=== PATIENT | male | born 1950 | race Caucasian/White ===

== ENCOUNTER → 2017-07-15 | Outpatient (CLI) | payer OTHER | LOC: RAD 12:16 | DX: M25.512 Pain in left shoulder (principal) ==

== ENCOUNTER → 2017-12-20 | Outpatient (CLI) | payer OTHER | END | disposition home or self-care (01) | LOC: LAB 11:33 | DX: R00.0 Tachycardia, unspecified (principal) ==

== ENCOUNTER 2019-05-02 11:02 | Emergency (ER) | payer OTHER ==
[~2019-05-02] VITALS: Ht 180.3 cm; Wt 99.8 kg
[2019-05-02] MEDS ORDERED: ULTRAM50 MG PO (12:34)
== END 2019-05-02 13:17 | disposition home or self-care (01) ==
LOC: ED 11:02
DX: S52.502A Unspecified fracture of the lower end of left radius, initial encounter for closed fracture (principal); W01.0XXA Fall on same level from slipping, tripping and stumbling without subsequent striking against object, initial encounter; Y93.02 Activity, running; Y92.89 Other specified places as the place of occurrence of the external cause; Y99.8 Other external cause status

== ENCOUNTER → 2019-05-07 | Outpatient (CLI) | payer OTHER ==
[~2019-05-07] MED LIST: ULTRAM50 MG PO
== END | disposition home or self-care (01) ==
LOC: ORTHO 00:55
DX: S52.592D Other fractures of lower end of left radius, subsequent encounter for closed fracture with routine healing (principal); M25.432 Effusion, left wrist; X58.XXXD Exposure to other specified factors, subsequent encounter

== ENCOUNTER → 2019-06-01 | Outpatient (CLI) | payer OTHER | END | disposition home or self-care (01) | LOC: ORTHO 00:12 | DX: S52.509D Unspecified fracture of the lower end of unspecified radius, subsequent encounter for closed fracture with routine healing (principal); X58.XXXD Exposure to other specified factors, subsequent encounter ==

== ENCOUNTER → 2019-06-18 | Outpatient (CLI) | payer OTHER | END | disposition home or self-care (01) | LOC: ORTHO 01:00 | DX: S52.509D Unspecified fracture of the lower end of unspecified radius, subsequent encounter for closed fracture with routine healing (principal); M25.511 Pain in right shoulder; X58.XXXD Exposure to other specified factors, subsequent encounter ==

== ENCOUNTER 2020-03-06 11:10 | Inpatient (IN) | payer OTHER ==
[2020-03-06] VITALS (17 sets, daily range): BP systolic 90–139; BP diastolic 46–76
[~2020-03-06] VITALS: Ht 180.3 cm; Wt 93.2 kg
[2020-03-06 11:57] LABS: MEAN CELL VOLUME 67.4 fl (80.0-94.0); MEAN CORPUSCULAR HGB 16.8 pg (27.0-31.0); MEAN PLATELET VOLUME 10.1 fl (9.6-12.3); NUCLEATED RED BLOOD CELL 0.1 10*3/uL (0.0-0.0); NUCLEATED RED BLOOD CELL 0.9 % (0.0-0.0); PLATELET COUNT AUTOMATED 579 10*3/uL (130-400); RED BLOOD COUNT 2.73 10*6/uL (4.50-5.90); RED CELL DISTRI WIDTH 19.2 % (0-14.5)
--- NOTE | 2020-03-06 12:00 | NUR ---
PATIENT DENIES WOUNDS A&OX4.
[2020-03-06 12:04] LABS: HEMATOCRIT 18.4 % (42.0-52.0)
[2020-03-06 12:06] LABS: ACT PARTIAL THROMBO TIME 25.3 SECONDS (20.0-32.1)
[2020-03-06 12:10] LABS: IRON 8 ug/dL (65-175); TOTAL IRON BINDING CAPACITY 400 ug/dl (250-450)
[2020-03-06 12:14] LABS: ALKALINE PHOSPHATASE 91 U/L (45-117); BUN 13 mg/dl (7-24); CHLORIDE 105 mmol/L (98-107); CREATININE 0.97 mg/dL (0.70-1.30); POTASSIUM 3.8 mmol/L (3.5-5.1); SGOT/AST 9 IU/L (3-35); SGPT/ALT 24 U/L (12-78); SODIUM 133 mmol/L (136-145); TOTAL PROTEIN 6.5 gm/dL (6.4-8.2)
[2020-03-06 12:15] LABS: LIPASE 104 U/L (73-393)
[2020-03-06 12:17] LABS: TROPONIN I < 0.015 ng/ml (<0.045)
[2020-03-06 12:30] LABS: RETICULOCYTE % 5.53 % (0.50-2.50)
[2020-03-06 12:35] LABS: MICROCYTOSIS MARKED; OVALOCYTES MANY; TOTAL CELLS COUNTED 100 #CELLS
[2020-03-06 12:36] LABS: PLATELET SUFFICIENCY HIGH (NORMAL); SCHISTOCYTES FEW
[2020-03-06 12:52] LABS: FERRITIN 6.1 ng/mL (22.0-322.0)
--- NOTE | 2020-03-06 13:04 | NUR ---
THE PATIENT WAS GIVEN A URINAL
--- NOTE | 2020-03-06 13:13 | NUR ---
THE PATIENT ASKED IF HE COULD HAVE "SOMETHING TO EAT." I CHECKED WITH WITH ER DOC. AND HE SAID HE COULD HAVE A LUNCH TRAY.
--- NOTE | 2020-03-06 13:49 | NUR ---
THE PATIENT WAS GIVEN HIS LUNCH TRAY
[2020-03-06] MEDS ORDERED: RESTASIS1 EACH OP (14:28)
[2020-03-06] MEDS ORDERED: ZESTORETIC 10-1 EACH PO (14:28)
[2020-03-06] MEDS ORDERED: DICLOFENAC SOD75 MG PO (14:29)
--- NOTE | 2020-03-06 14:30 | NUR ---
PATIENT TAKEN TO ICCU AT THIS TIME BY THIS NURSE. NO CHANGE IN STATUS. A&OX4. BEDSIDE REPORT GIVEN TO BRIAN CHANEY.
--- NOTE | 2020-03-06 14:35 | NUR ---
RECEVIED FROM ER VIA CART WITH C/O GI BLEED.. PATIENT STATES HE HAS BEEN HAVING A LOT OF ACIDIC DRINKS LATELY
--- NOTE | 2020-03-06 18:37 | NUR ---
FIRST RBC COMPLETED
--- NOTE | 2020-03-06 19:10 | NUR ---
CHART CHECK COMPLETE.
--- NOTE | 2020-03-06 20:53 | NUR ---
PREOP QUESTIONNAIRE/CONSENT SIGNED BY PT.
[2020-03-06 21:41] LABS: MEAN CORPUSCULAR HGB 18.9 pg (27.0-31.0); MEAN CORPUSCULAR HGB CONC 26.6 g/dl (33.0-37.0); MEAN PLATELET VOLUME 10.9 fl (9.6-12.3); NUCLEATED RED BLOOD CELL 0.1 10*3/uL (0.0-0.0); PLATELET COUNT AUTOMATED 517 10*3/uL (130-400); RED BLOOD COUNT 2.64 10*6/uL (4.50-5.90); RED CELL DISTRI WIDTH 21.5 % (0-14.5); WHITE BLOOD COUNT 9.2 10*3/uL (4.8-10.8)
--- NOTE | 2020-03-06 21:56 | NUR ---
DR Libby CALVERT NOTIFIED OF HH 5&18.8.
[2020-03-06 21:57] LABS: HEMATOCRIT 18.8 % (42.0-52.0); MEAN CELL VOLUME 71.2 fl (80.0-94.0)
[2020-03-06 22:08] LABS: BASOPHILS 2 % (0-1); TOTAL CELLS COUNTED 100 #CELLS
[2020-03-06 22:09] LABS: ACANTHOCYTES FEW; MICROCYTOSIS MODERATE; OVALOCYTES MANY; PLATELET SUFFICIENCY HIGH (NORMAL)
[2020-03-07] VITALS (22 sets, daily range): BP systolic 73–117; BP diastolic 37–71
--- NOTE | 2020-03-07 02:24 | NUR ---
PT SLEEPING. THIRD UNIT OF PRBC'S INFUSING WITHOUT DIFFICULTY. HR 70'S.
[2020-03-07 06:28] LABS: HEMATOCRIT 23.8 % (42.0-52.0); MEAN CELL VOLUME 72.8 fl (80.0-94.0); MEAN CORPUSCULAR HGB 20.8 pg (27.0-31.0); MEAN CORPUSCULAR HGB CONC 28.6 g/dl (33.0-37.0); MEAN PLATELET VOLUME 10.3 fl (9.6-12.3); NUCLEATED RED BLOOD CELL 0.1 10*3/uL (0.0-0.0); NUCLEATED RED BLOOD CELL 0.9 % (0.0-0.0); PLATELET COUNT AUTOMATED 441 10*3/uL (130-400); RED BLOOD COUNT 3.27 10*6/uL (4.50-5.90); WHITE BLOOD COUNT 7.4 10*3/uL (4.8-10.8)
--- NOTE | 2020-03-07 06:34 | NUR ---
DR BOYD NOTIFIED OF HGB 6.8.
[2020-03-07 07:01] LABS: ALBUMIN 2.7 gm/dl (3.1-4.5); BUN 9 mg/dl (7-24); CHLORIDE 108 mmol/L (98-107); POTASSIUM 4.3 mmol/L (3.5-5.1); SODIUM 136 mmol/L (136-145)
[2020-03-07 07:05] LABS: ALKALINE PHOSPHATASE 81 U/L (45-117); CREATININE 0.76 mg/dL (0.70-1.30); IRON 15 ug/dL (65-175); SGOT/AST 13 IU/L (3-35); SGPT/ALT 18 U/L (12-78); TOTAL IRON BINDING CAPACITY 354 ug/dl (250-450); TOTAL PROTEIN 5.9 gm/dL (6.4-8.2)
[2020-03-07 07:12] LABS: BASOPHILS 3 % (0-1); OVALOCYTES MANY; PLATELET SUFFICIENCY HIGH (NORMAL); POLYCHROMASIA SLIGHT; TOTAL CELLS COUNTED 100 #CELLS
[2020-03-07 07:13] LABS: MICROCYTOSIS SLIGHT; SCHISTOCYTES FEW
--- NOTE | 2020-03-07 08:15 | NUR ---
AAOX3, UP TO BR FOR AM CARE, PT STEADY, HEART RATE 112 WITH WALKING, NO DIZZINESS NOTED. OV SITE TO COLLEEN SECURE, PT HAS NO VOICED C/O BUT IS HUNGRY
--- NOTE | 2020-03-07 08:30 | NUR ---
CM in to see patient. Nurse currently in room. Will follow up at a later time.
--- NOTE | 2020-03-07 09:00 | NUR ---
CM in to see patient. He is sitting up in his bedside chair talking on the phone. Will follow up at a later time.
--- NOTE | 2020-03-07 09:30 | NUR ---
TO OR VIA BED
--- NOTE | 2020-03-07 10:00 | NUR ---
lab unable to match blood, specmen to be sent to [facility] for cross matching
--- NOTE | 2020-03-07 11:20 | NUR ---
return from or, egd negative, pt to nucleur for bleeding scan
--- NOTE | 2020-03-07 12:30 | NUR ---
CM in to see patient. He is currently not in his room. Will follow up at a later time.
--- NOTE | 2020-03-07 13:06 | NUR ---
PT REMAINS IN RADIOLOGY
--- NOTE | 2020-03-07 13:54 | NUR ---
Correctional Program Officer in to talk to patient. Patient states lives at home with his land living downstairs. There are 10 steps in the home. Physician: Dr. Jacobs Pharmacy: [facility] Home health services: none Patient's level of ADLs: INDEPENDENT Patient has working utilities: yes DME: none Follow-up physician's appointment after d/c: he prefers to make his own follow up appt after discharge Does patient want to access PORTAL?: no Discharge plan discussed with patient. He is sitting up in his bedside chair eating dinner. He lives at home with his land [place] living downstairs. He is independent in his ADLs and ambulation. 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 He states he goes to the gym 3 days a week. He officiated a volleyball game 2 nights ago in [place]. Discussed home health care services and he declines. CM will continue to follow for any discharge planning needs. When medically stable he will be discharged to home. He states his samantha, Elvin Viveros, will provide transportation on discharge. MALLORIE VELÁSQUEZ
[2020-03-07 16:34] LABS: THYROID STIM HORMONE (HS) 2.07 uIU/ml (0.358-4.75)
--- NOTE | 2020-03-07 18:09 | NUR ---
PT UNABLE TO TOLERATE IV IRON, IV SITE IS SWOLLEDN, IV REMOVED AND NEW IV RESTARTED
--- NOTE | 2020-03-07 19:16 | NUR ---
CHART CHECK COMPLETE.
--- NOTE | 2020-03-07 20:25 | NUR ---
UNIT #4 TRANSFUSING ORDERED.
--- NOTE | 2020-03-07 22:55 | NUR ---
PT TRANSFUSION COMPLETED. PT WATCHING TV.
--- NOTE | 2020-03-08 01:30 | NUR ---
PT LAYING ON HIS BED...SLEEPING WITH EVEN, UNLABORED RESPIRATIONS.
[2020-03-08 04:00] VITALS: BP 110/59
[2020-03-08 06:32] LABS: BASO # 0.1 10*3/uL (0.0-0.1); BASO % 0.5 % (0.0-1.0); EOS # 0.2 10*3/uL (0.0-0.4); EOS % 2.3 % (1.0-4.0); HEMATOCRIT 26.8 % (42.0-52.0); LYMPH # 1.4 10*3/uL (1.3-4.4); LYMPH % 14.8 % (27.0-41.0); MEAN CELL VOLUME 75.5 fl (80.0-94.0); MEAN CORPUSCULAR HGB CONC 29.1 g/dl (33.0-37.0); MEAN PLATELET VOLUME 10.2 fl (9.6-12.3); MONO # 0.7 10*3/uL (0.1-1.0); MONO % 7.9 % (3.0-9.0); NEUT # 6.9 10*3/uL (2.3-7.9); NEUT % 74.2 % (47.0-73.0); NUCLEATED RED BLOOD CELL 0.1 10*3/uL (0.0-0.0); NUCLEATED RED BLOOD CELL 0.6 % (0.0-0.0); PLATELET COUNT AUTOMATED 408 10*3/uL (130-400); RED BLOOD COUNT 3.55 10*6/uL (4.50-5.90); RED CELL DISTRI WIDTH 23.3 % (0-14.5); WHITE BLOOD COUNT 9.3 10*3/uL (4.8-10.8)
--- NOTE | 2020-03-08 07:59 | NUR ---
Shift chart check completed.24 HR chart check completed.
[2020-03-08 08:00] VITALS: BP 98/50
--- NOTE | 2020-03-08 09:33 | NUR ---
ON ASSESSMENT PATIENT IS ALERT, ORIENTED, WATCHING TV. NO VOICED COMPLAINTS OF PAIN OR SHORTNESS OF BREATH. EXPLANATIONS ABOUT COLONOSCOPY PREP AND PROCEDURE. PT IS CONCERNED ABOUT PREPPING AND A BSC VS AN ACTUAL BATHROOM.
--- NOTE | 2020-03-08 10:41 | NUR ---
DR HAYES HAS VISITED AND REVIEWED PLANS FOR COLONOSCOPY TUESDAY. IV RT HAND PAINFUL PRIOR TO STARTING FERRLICET INFUSION; SITE D/C. NEW IV #22 RA ON FIRST ATTEMPT.
[2020-03-08 12:00] VITALS: BP 104/58
--- NOTE | 2020-03-08 15:24 | NUR ---
HAVE OFFERED TO HELP PT PERFORM PARTIAL BATH BUT HE HAS DECLINED.
[2020-03-08 16:00] VITALS: BP 107/54
--- NOTE | 2020-03-08 17:31 | NUR ---
PT OUT OF BED TO CHAIR. GAIT IS STEADY. NO BM'S TODAY. HE'S "FULL FROM LUNCH".
--- NOTE | 2020-03-08 18:16 | NUR ---
DR CALVERT CALLED PER REQUEST OF NURSING SERVICE STATION HELPER TO ASK IF PT COULD MOVE OUT OF ICCU AND THIS HAS BEEN ORDERED.
--- NOTE | 2020-03-08 18:48 | NUR ---
PT TRANSFERRED, IN STABLE CONDITION, VIA W/C WITH ALL OF HIS BELONGINGS TO [facility].
--- NOTE | 2020-03-08 19:04 | NUR ---
REPORT TO PAT ON 4E.
[2020-03-08 20:00] VITALS: BP 119/56
--- NOTE | 2020-03-08 20:10 | NUR ---
SITTING UP IN CHAIR IN ROOM. VOICES NO C/O AT THIS TIME. INFORMED PATIENT THAT IF HE HAD A BOWEL MOVEMENT THAT WE NEEDED A SPECIMEN. VERBALIZED UNDERSTANDING. CALL LIGHT WITHIN REACH.
[2020-03-09] VITALS: BP 116/71
--- NOTE | 2020-03-09 06:00 | NUR ---
PT. RESTING IN BED WITH EYES CLOSED; AROUSES EASILY. MEDICATION GIVEN. PT. VOICES NO C/O. CALL LIGHT WITHIN REACH.
[2020-03-09 06:14] LABS: BASO # 0.1 10*3/uL (0.0-0.1); BASO % 0.9 % (0.0-1.0); EOS # 0.3 10*3/uL (0.0-0.4); EOS % 3.5 % (1.0-4.0); HEMATOCRIT 26.7 % (42.0-52.0); LYMPH # 1.5 10*3/uL (1.3-4.4); LYMPH % 16.4 % (27.0-41.0); MEAN CELL VOLUME 75.9 fl (80.0-94.0); MEAN CORPUSCULAR HGB 21.6 pg (27.0-31.0); MEAN CORPUSCULAR HGB CONC 28.5 g/dl (33.0-37.0); MEAN PLATELET VOLUME 10.3 fl (9.6-12.3); MONO # 0.7 10*3/uL (0.1-1.0); MONO % 7.2 % (3.0-9.0); NEUT # 6.6 10*3/uL (2.3-7.9); NEUT % 71.7 % (47.0-73.0); NUCLEATED RED BLOOD CELL 0.3 % (0.0-0.0); PLATELET COUNT AUTOMATED 400 10*3/uL (130-400); RED BLOOD COUNT 3.52 10*6/uL (4.50-5.90); RED CELL DISTRI WIDTH 23.9 % (0-14.5); WHITE BLOOD COUNT 9.2 10*3/uL (4.8-10.8)
[2020-03-09 06:24] LABS: ALBUMIN 2.6 gm/dl (3.1-4.5); ALKALINE PHOSPHATASE 80 U/L (45-117); BUN 7 mg/dl (7-24); CHLORIDE 109 mmol/L (98-107); CREATININE 0.79 mg/dL (0.70-1.30); POTASSIUM 3.7 mmol/L (3.5-5.1); SGOT/AST 11 IU/L (3-35); SGPT/ALT 19 U/L (12-78); SODIUM 136 mmol/L (136-145); TOTAL PROTEIN 5.7 gm/dL (6.4-8.2)
[2020-03-09 08:00] VITALS: BP 154/65
--- NOTE | 2020-03-09 11:00 | NUR ---
DR. CAR HERE TO SEE PATIENT
[2020-03-09 12:00] VITALS: BP 131/78
--- NOTE | 2020-03-09 14:00 | NUR ---
GOLYTELY PREP STARTED
[2020-03-09 16:00] VITALS: BP 101/62
--- NOTE | 2020-03-09 19:40 | NUR ---
PT SEEN AND ASSESSED. PT DENIES ANY C/O AT THIS TIME. PER THE PT HE HAS NOT YET MOVED HIS BOWELS SINCE BEGINNING THE PREP FOR SCHEDULED COLONOSCOPY TOMORROW. PT INSTRUCTED TO NOTIFY RN WHEN HE BEGINS TO MOVE HIS BOWELS.
[2020-03-09 20:00] VITALS: BP 96/58
[2020-03-10] VITALS (8 sets, daily range): BP systolic 75–129; BP diastolic 38–76
--- NOTE | 2020-03-10 02:19 | NUR ---
24 HR chart check completed.
[2020-03-10 06:18] LABS: BASO % 0.5 % (0.0-1.0); EOS # 0.3 10*3/uL (0.0-0.4); EOS % 4.3 % (1.0-4.0); HEMATOCRIT 27.8 % (42.0-52.0); LYMPH # 1.2 10*3/uL (1.3-4.4); LYMPH % 15.2 % (27.0-41.0); MEAN CORPUSCULAR HGB 22.2 pg (27.0-31.0); MEAN CORPUSCULAR HGB CONC 28.8 g/dl (33.0-37.0); MEAN PLATELET VOLUME 10.1 fl (9.6-12.3); MONO # 0.8 10*3/uL (0.1-1.0); MONO % 9.5 % (3.0-9.0); NEUT # 5.6 10*3/uL (2.3-7.9); NEUT % 70.2 % (47.0-73.0); PLATELET COUNT AUTOMATED 357 10*3/uL (130-400); RED BLOOD COUNT 3.61 10*6/uL (4.50-5.90); RED CELL DISTRI WIDTH 25.2 % (0-14.5)
--- NOTE | 2020-03-10 09:50 | NUR ---
PATIENT DOWN TO SURGERY FOR COLONOSCOPY.
--- NOTE | 2020-03-10 10:30 | NUR ---
CM in to see patient. He is currently not in his room. Will follow up at a later time.
--- NOTE | 2020-03-10 13:22 | NUR ---
CM in to see patient. He is currently not in his room. Will follow up at a later time.
--- NOTE | 2020-03-10 14:40 | NUR ---
PATIENT BACK UP FROM SURGERY.
--- NOTE | 2020-03-10 19:00 | NUR ---
ASSUMED CARE FOR THIS PT AT THIS TIME. PT AWAKE SITTING IN RECLINER CHAIR WATCHING TV. LATERAL RAC RED/SWOLLEN/TENDER. PT STATES IT IS FROM FERRLICIT PREVIOUSLY. WILL MONITOR. CALL LIGHT IN REACH.
--- NOTE | 2020-03-10 20:11 | NUR ---
PT C/O GENERAL DISCOMFORT. MEDICATED W/650MG TYLENOL PO. WILL MONITOR FOR EFFECTIVENESS. CALL LIGHT IN REACH.
--- NOTE | 2020-03-10 22:10 | NUR ---
PT STATES THAT PRN TYLENOL WAS EFFECTIVE FOR PAIN RELIEF.
[2020-03-11] VITALS: BP 101/57
[2020-03-11 08:00] VITALS: BP 124/61
--- NOTE | 2020-03-11 08:30 | NUR ---
Patient resting quietly with no c/o discomfort. Respirations easy and regular. Vital signs stable. No overt distress. GIOVANNA TOVAR R
--- NOTE | 2020-03-11 09:00 | NUR ---
CM in to see patient. No new needs or request at this time. Discussed home health care services and he declines. CM will continue to follow for any discharge planning needs. When medically stable he will be discharged to home.
--- NOTE | 2020-03-11 13:08 | NUR ---
PT REQUESTED AND WAS MEDICATED WITH TYLENOL FOR C/O HEADACHE. CALL LIGHT IN REACH. WILL MONITOR
[2020-03-11] MEDS ORDERED: PROTONIX40 M1 IV (13:31)
[2020-03-11] MEDS ORDERED: IRON325 M1 PO (13:39)
--- NOTE | 2020-03-11 14:00 | NUR ---
MEDICATION EFFECTIVE PER PT. CALL LIGHT IN REACH. WILL MONITOR
--- NOTE | 2020-03-11 15:35 | NUR ---
Discharge instructions reviewed with patient/family. Patient receptive and verbalizes understanding. Follow-up care arranged. Written instructions given to patient/family. GIOVANNA TOVAR
== END 2020-03-11 15:42 | disposition home or self-care (01) | DRG 378 ==
LOC: ED 11:10 → EDHOLD 14:11 → 4E 14:11 → ICCU 14:11 → 4E 03-08 19:06
PROVIDERS: Emergency Medicine; Internal Medicine Nephrology; Student in an Organized Health Care Education/Training Program; ADMIT Internal Medicine; ATTEND Internal Medicine
PROC: 0DB68ZX Excision of Stomach, Via Natural or Artificial Opening Endoscopic, Diagnostic (ICD-10-PCS; principal; 2020-03-07)
PROC: 0DJD8ZZ Inspection of Lower Intestinal Tract, Via Natural or Artificial Opening Endoscopic (ICD-10-PCS; 2020-03-10)
DX: K92.1 Melena (principal); D62 Acute posthemorrhagic anemia; E87.2 Acidosis; E87.1 Hypo-osmolality and hyponatremia; E44.0 Moderate protein-calorie malnutrition; R53.83 Other fatigue; I10 Essential (primary) hypertension; D47.3 Essential (hemorrhagic) thrombocythemia; R00.0 Tachycardia, unspecified; R73.9 Hyperglycemia, unspecified; E66.3 Overweight; J30.2 Other seasonal allergic rhinitis; I95.9 Hypotension, unspecified; Z79.899 Other long term (current) drug therapy; Z68.28 Body mass index [BMI] 28.0-28.9, adult

== ENCOUNTER → 2020-11-18 | Outpatient (CLI) | payer OTHER ==
[~2020-11-18] MED LIST changes: +DICLOFENAC SOD75 MG PO; +IRON325 M1 PO; +PROTONIX40 M1 IV; +RESTASIS1 EACH OP; +ZESTORETIC 10-1 EACH PO
== END | disposition home or self-care (01) ==
LOC: D 08:45
PROVIDERS: ATTEND Family Medicine
DX: Z71.3 Dietary counseling and surveillance (principal); R63.4 Abnormal weight loss

== ENCOUNTER 2021-11-13 15:27 | Inpatient (IN) | payer OTHER ==
[~2021-11-13] VITALS: Ht 180.3 cm; Wt 106.3 kg
[2021-11-13 16:03] VITALS: BP 167/89
[2021-11-13 16:44] LABS: BASO # 0.1 10*3/uL (0.0-0.1); BASO % 0.3 % (0.0-1.0); EOS # 0.1 10*3/uL (0.0-0.4); EOS % 0.6 % (1.0-4.0); HEMATOCRIT 49.2 % (42.0-52.0); LYMPH # 1.7 10*3/uL (1.3-4.4); LYMPH % 10.1 % (27.0-41.0); MEAN CELL VOLUME 79.7 fl (80.0-94.0); MEAN CORPUSCULAR HGB 25.3 pg (27.0-31.0); MEAN CORPUSCULAR HGB CONC 31.7 g/dl (33.0-37.0); MEAN PLATELET VOLUME 10.6 fl (9.6-12.3); MONO # 0.9 10*3/uL (0.1-1.0); MONO % 5.3 % (3.0-9.0); NEUT # 13.9 10*3/uL (2.3-7.9); NEUT % 83.2 % (47.0-73.0); PLATELET COUNT AUTOMATED 452 10*3/uL (130-400); RED BLOOD COUNT 6.17 10*6/uL (4.50-5.90); RED CELL DISTRI WIDTH 15.1 % (0-14.5); WHITE BLOOD COUNT 16.7 10*3/uL (4.8-10.8)
[2021-11-13 17:00] LABS: ALKALINE PHOSPHATASE 118 U/L (45-117); BUN 11 mg/dl (7-24); CHLORIDE 105 mmol/L (98-107); CREATININE 0.98 mg/dL (0.70-1.30); LIPASE 96 U/L (73-393); POTASSIUM 4.3 mmol/L (3.5-5.1); SGOT/AST 22 IU/L (3-35); SGPT/ALT 43 U/L (12-78); SODIUM 135 mmol/L (136-145); TOTAL PROTEIN 7.8 gm/dL (6.4-8.2)
[2021-11-13 20:31] VITALS: BP 153/95
[2021-11-13 21:40] VITALS: BP 158/90
[2021-11-14] VITALS (9 sets, daily range): BP systolic 140–159; BP diastolic 79–99
[2021-11-14 05:59] LABS: BUN 16 mg/dl (7-24); CHLORIDE 112 mmol/L (98-107); CREATININE 1.02 mg/dL (0.70-1.30); POTASSIUM 4.7 mmol/L (3.5-5.1); SGOT/AST 17 IU/L (3-35); SGPT/ALT 28 U/L (12-78); SODIUM 139 mmol/L (136-145)
[2021-11-14 06:07] LABS: ALKALINE PHOSPHATASE 76 U/L (45-117); CHOLESTEROL 100 mg/dL (<200); FREE T4 1.24 ng/dl (0.76-1.46); LDL CHOLESTEROL 59 mg/dL (9-159); TOTAL PROTEIN 6.1 gm/dL (6.4-8.2); TRIGLYCERIDES 69 mg/dl (<150)
[2021-11-14 06:15] LABS: HEMATOCRIT 47.2 % (42.0-52.0); MEAN CELL VOLUME 79.7 fl (80.0-94.0); MEAN CORPUSCULAR HGB 25.2 pg (27.0-31.0); MEAN CORPUSCULAR HGB CONC 31.6 g/dl (33.0-37.0); MEAN PLATELET VOLUME 11.6 fl (9.6-12.3); PLATELET COUNT AUTOMATED 414 10*3/uL (130-400); RED BLOOD COUNT 5.92 10*6/uL (4.50-5.90); RED CELL DISTRI WIDTH 15.1 % (0-14.5)
[2021-11-14 06:25] LABS: ACT PARTIAL THROMBO TIME 30.1 SECONDS (20.0-32.1); INTERNATIONAL NORM RATIO 1.1 (2.0-3.5)
[2021-11-14 06:38] LABS: MANUAL DIFF REFLEX YES
[2021-11-14 07:04] LABS: BURR CELLS FEW; PLATELET SUFFICIENCY HIGH (NORMAL); POLYCHROMASIA SLIGHT; TOTAL CELLS COUNTED 100 #CELLS
[2021-11-14 07:05] LABS: MICROCYTOSIS SLIGHT
[2021-11-14 07:30] LABS: VITAMIN D, 25-HYDROXY 38.6 ng/mL (30-100)
[2021-11-15] VITALS: BP 145/104
[2021-11-15 06:28] LABS: ALKALINE PHOSPHATASE 72 U/L (45-117); CHLORIDE 113 mmol/L (98-107); CREATININE 1.18 mg/dL (0.70-1.30); POTASSIUM 4.3 mmol/L (3.5-5.1); SGOT/AST 19 IU/L (3-35); SGPT/ALT 19 U/L (12-78); SODIUM 142 mmol/L (136-145); TOTAL PROTEIN 5.9 gm/dL (6.4-8.2)
[2021-11-15 06:46] LABS: HEMATOCRIT 48.4 % (42.0-52.0); MEAN CORPUSCULAR HGB 24.8 pg (27.0-31.0); MEAN CORPUSCULAR HGB CONC 31.4 g/dl (33.0-37.0); MEAN PLATELET VOLUME 11.5 fl (9.6-12.3); PLATELET COUNT AUTOMATED 526 10*3/uL (130-400); RED BLOOD COUNT 6.13 10*6/uL (4.50-5.90); RED CELL DISTRI WIDTH 15.5 % (0-14.5); WHITE BLOOD COUNT 16.9 10*3/uL (4.8-10.8)
[2021-11-15 06:49] LABS: BUN 26 mg/dl (7-24)
[2021-11-15 06:58] LABS: MANUAL DIFF REFLEX YES
[2021-11-15 07:28] LABS: BURR CELLS MODERATE; PLATELET SUFFICIENCY HIGH (NORMAL); POLYCHROMASIA SLIGHT; TOTAL CELLS COUNTED 100 #CELLS
[2021-11-15 07:29] LABS: MICROCYTOSIS SLIGHT
[2021-11-15 08:00] VITALS: BP 151/99
[2021-11-15 12:00] VITALS: BP 142/65
[2021-11-15 16:00] VITALS: BP 140/95
[2021-11-15 20:00] VITALS: BP 148/97
[2021-11-16] VITALS: BP 156/92
[2021-11-16 06:10] LABS: CHLORIDE 112 mmol/L (98-107); POTASSIUM 4.3 mmol/L (3.5-5.1); SODIUM 140 mmol/L (136-145)
[2021-11-16 06:14] LABS: ALKALINE PHOSPHATASE 56 U/L (45-117); CREATININE 1.27 mg/dL (0.70-1.30); SGOT/AST 15 IU/L (3-35); SGPT/ALT 15 U/L (12-78)
[2021-11-16 06:19] LABS: BUN 44 mg/dl (7-24)
[2021-11-16 06:35] LABS: BASO % 0.1 % (0.0-1.0); HEMATOCRIT 46.5 % (42.0-52.0); LYMPH # 0.8 10*3/uL (1.3-4.4); LYMPH % 4.3 % (27.0-41.0); MEAN CELL VOLUME 78.7 fl (80.0-94.0); MEAN CORPUSCULAR HGB 24.7 pg (27.0-31.0); MEAN CORPUSCULAR HGB CONC 31.4 g/dl (33.0-37.0); MONO # 1.2 10*3/uL (0.1-1.0); MONO % 6.8 % (3.0-9.0); NEUT # 15.3 10*3/uL (2.3-7.9); NEUT % 88.4 % (47.0-73.0); PLATELET COUNT AUTOMATED 533 10*3/uL (130-400); RED BLOOD COUNT 5.91 10*6/uL (4.50-5.90); RED CELL DISTRI WIDTH 15.5 % (0-14.5); WHITE BLOOD COUNT 17.3 10*3/uL (4.8-10.8)
[2021-11-16 08:00] VITALS: BP 157/94
[2021-11-16 12:00] VITALS: BP 153/98
[2021-11-16 16:00] VITALS: BP 144/86
[2021-11-16 20:00] VITALS: BP 118/86
[2021-11-17 00:10] VITALS: BP 104/76
== END 2021-11-17 02:59 | disposition short-term general hospital (02) | DRG 335 ==
LOC: ED 15:27 → ICCU 19:37 → 4E 19:37 → EDHOLD 19:37 → 4E 20:42 → ICCU 11-16 23:47
PROVIDERS: Internal Medicine; Student in an Organized Health Care Education/Training Program; ADMIT Emergency Medicine; ATTEND Emergency Medicine
PROC: 0DN80ZZ Release Small Intestine, Open Approach (ICD-10-PCS; 2021-11-14)
PROC: 0W9G00Z Drainage of Peritoneal Cavity with Drainage Device, Open Approach (ICD-10-PCS; 2021-11-14)
PROC: 0WQF0ZZ Repair Abdominal Wall, Open Approach (ICD-10-PCS; 2021-11-14)
PROC: 0WJF4ZZ Inspection of Abdominal Wall, Percutaneous Endoscopic Approach (ICD-10-PCS; 2021-11-14)
PROC: 5A0945A Assistance with Respiratory Ventilation, 24-96 Consecutive Hours, High Flow/Velocity Cannula (ICD-10-PCS; 2021-11-15)
PROC: 0DJD0ZZ Inspection of Lower Intestinal Tract, Open Approach (ICD-10-PCS; principal; 2021-11-16)
PROC: 2W13X6Z Compression of Abdominal Wall using Pressure Dressing (ICD-10-PCS; 2021-11-16)
PROC: 0D9670Z Drainage of Stomach with Drainage Device, Via Natural or Artificial Opening (ICD-10-PCS; 2021-11-16)
DX: K56.699 Other intestinal obstruction unspecified as to partial versus complete obstruction (principal); K65.9 Peritonitis, unspecified; E43 Unspecified severe protein-calorie malnutrition; E87.1 Hypo-osmolality and hyponatremia; R65.10 Systemic inflammatory response syndrome (SIRS) of non-infectious origin without acute organ dysfunction; D75.839 Thrombocytosis, unspecified; E87.8 Other disorders of electrolyte and fluid balance, not elsewhere classified; I10 Essential (primary) hypertension; K52.9 Noninfective gastroenteritis and colitis, unspecified; Z68.32 Body mass index [BMI] 32.0-32.9, adult

== ENCOUNTER → 2022-02-17 | Outpatient (CLI) | payer OTHER ==
[~2022-02-17] MED LIST changes: +DULCOLAX5 M1 PO; +GUAIFENESIN200 MG PO; +HEPARIN SO5000 UNIT4 SQ; +IMODIUM A-D2 M2 PO; +MELATONIN3 MG PO; +MIRALAX17 GM PO; +OCEAN104 ML NAS; +ONDANSETRON4 MG SL; +PROBIOTIC250 MG PO; +SENOKOT8.6 MG PO; +TUMS200 MG PO; +TYLENOL325 M1 PO
== END | disposition home or self-care (01) ==
LOC: WOUNDCARE 02:14
PROVIDERS: ATTEND Nurse Practitioner Family
DX: T81.89XA Other complications of procedures, not elsewhere classified, initial encounter (principal); S31.109A Unspecified open wound of abdominal wall, unspecified quadrant without penetration into peritoneal cavity, initial encounter; I10 Essential (primary) hypertension; X58.XXXA Exposure to other specified factors, initial encounter; Y93.89 Activity, other specified; Y92.89 Other specified places as the place of occurrence of the external cause; Y99.8 Other external cause status; Y92.238 Other place in hospital as the place of occurrence of the external cause; Y83.8 Other surgical procedures as the cause of abnormal reaction of the patient, or of later complication, without mention of misadventure at the time of the procedure

== ENCOUNTER → 2022-02-25 | Outpatient (CLI) | payer OTHER | END | disposition home or self-care (01) | LOC: WOUNDCARE 02-24 18:18 | PROVIDERS: ATTEND Nurse Practitioner Family | DX: T81.89XD Other complications of procedures, not elsewhere classified, subsequent encounter (principal); L98.492 Non-pressure chronic ulcer of skin of other sites with fat layer exposed; S31.109D Unspecified open wound of abdominal wall, unspecified quadrant without penetration into peritoneal cavity, subsequent encounter; I10 Essential (primary) hypertension; X58.XXXD Exposure to other specified factors, subsequent encounter; Y83.8 Other surgical procedures as the cause of abnormal reaction of the patient, or of later complication, without mention of misadventure at the time of the procedure ==

== ENCOUNTER → 2022-03-05 | Outpatient (CLI) | payer OTHER | END | disposition home or self-care (01) | LOC: WOUNDCARE 03-04 11:09 | PROVIDERS: ATTEND Surgery Vascular Surgery | DX: T81.89XD Other complications of procedures, not elsewhere classified, subsequent encounter (principal); S31.109D Unspecified open wound of abdominal wall, unspecified quadrant without penetration into peritoneal cavity, subsequent encounter; L98.492 Non-pressure chronic ulcer of skin of other sites with fat layer exposed; I10 Essential (primary) hypertension; X58.XXXD Exposure to other specified factors, subsequent encounter; Y83.8 Other surgical procedures as the cause of abnormal reaction of the patient, or of later complication, without mention of misadventure at the time of the procedure ==

== ENCOUNTER → 2022-03-17 | Outpatient (CLI) | payer OTHER | LOC: WOUNDCARE 02:01 | PROVIDERS: ATTEND Nurse Practitioner Family | DX: T81.89XD Other complications of procedures, not elsewhere classified, subsequent encounter (principal); S31.109D Unspecified open wound of abdominal wall, unspecified quadrant without penetration into peritoneal cavity, subsequent encounter; I10 Essential (primary) hypertension; X58.XXXD Exposure to other specified factors, subsequent encounter; Y83.8 Other surgical procedures as the cause of abnormal reaction of the patient, or of later complication, without mention of misadventure at the time of the procedure ==

== ENCOUNTER → 2022-03-31 | Outpatient (CLI) | payer OTHER | LOC: WOUNDCARE 01:09 | PROVIDERS: ATTEND Nurse Practitioner Family | DX: T81.89XD Other complications of procedures, not elsewhere classified, subsequent encounter (principal); S31.109D Unspecified open wound of abdominal wall, unspecified quadrant without penetration into peritoneal cavity, subsequent encounter; I10 Essential (primary) hypertension; X58.XXXD Exposure to other specified factors, subsequent encounter; Y83.8 Other surgical procedures as the cause of abnormal reaction of the patient, or of later complication, without mention of misadventure at the time of the procedure ==

== ENCOUNTER → 2022-04-22 | Outpatient (CLI) | payer OTHER | END | disposition home or self-care (01) | LOC: US 00:19 | PROVIDERS: ATTEND Internal Medicine Nephrology | DX: I82.492 Acute embolism and thrombosis of other specified deep vein of left lower extremity (principal) ==

== ENCOUNTER 2025-01-31 14:30 | Emergency (ER) | payer OTHER ==
[~2025-01-31] VITALS: Ht 180.3 cm
[2025-01-31] MEDS ORDERED: Tdap Vaccine 0.5 ML SYR (Adult Vaccine) IM ONE (14:55)
[2025-01-31] MEDS ORDERED: Ondansetron4 MG PO (17:30)
[2025-01-31] MEDS ORDERED: ACETAMINOPHEN 325 MG TAB PO ONE (17:45)
== END 2025-01-31 18:25 | disposition home or self-care (01) ==
LOC: ED 14:30
DX: S51.812A Laceration without foreign body of left forearm, initial encounter (principal); S61.412A Laceration without foreign body of left hand, initial encounter; S80.01XA Contusion of right knee, initial encounter; S09.90XA Unspecified injury of head, initial encounter; S20.20XA Contusion of thorax, unspecified, initial encounter; S00.03XA Contusion of scalp, initial encounter; S20.211A Contusion of right front wall of thorax, initial encounter; Z90.89 Acquired absence of other organs; Z98.890 Other specified postprocedural states; Y08.89XA Assault by other specified means, initial encounter; Y93.89 Activity, other specified; Y92.89 Other specified places as the place of occurrence of the external cause; Y99.8 Other external cause status